=== PATIENT | male | born 1995 | race Caucasian/White ===

== ENCOUNTER 2018-06-16 18:52 | Emergency (ER) | payer BC ==
[2018-06-16 19:18] VITALS: BP 112/57
--- NOTE | 2018-06-16 20:20 | UC ---
UC General HPI - HPI Summary HPI Summary: 1. PT IS C/O A RASH ON HIS STOMACH FOR ABOUT 2 WEEKS. IT IS ITCHY AND SOMETIMES FLARES UP MORE THAN OTHERS. 2. ALSO C/O PAIN IN THE BASES OF HIS RIBS AND SIDE OF ABDOMEN FOR ABOUT 3 MONTHS. HE SAW HIS PCP ON L.I. WHO REFER TO PT BUT PATIENT RELOCATED HERE RIGHT AFTER THAT. HE NEVER GOT A CXR. HE DENIES ANY INJURY BUT ADMITS TO [employer] AT THE TIME OF ONSET. NO CP, SOB, COUGH. - History of Current Complaint Chief Complaint: UCGeneralIllness Stated Complaint: SKIN CONCERN Time Seen by Provider: 06/16/18 20:13 Hx Obtained From: Patient Pain Intensity: 2 - Allergy/Home Medications Allergies/Adverse Reactions: Allergies Allergy/AdvReac Type Severity Reaction Status Date / Time No Known Allergies Allergy Verified 06/16/18 19:18 Home Medications: Home Medications Melatonin/Pyridoxine HCl (B6) [Melatonin 10 mg Tablet] 1 each PO DAILY 06/16/18 [History Confirmed 06/16/18] PMH/Surg Hx/FS Hx/Imm Hx Previously Healthy: Yes - Surgical History Surgical History: None - Family History Known Family History: Positive: Other - RA - Social History Occupation: Employed Full-time Alcohol Use: Weekly Substance Use Type: None Smoking Status (MU): Never Smoked Tobacco Type: eCigarettes - Immunization History Vaccination Up to Date: Yes Review of Systems Constitutional: Negative Skin: Rash Eyes: Negative ENT: Negative Respiratory: Negative Cardiovascular: Negative Gastrointestinal: Negative Genitourinary: Negative Motor: Negative Neurovascular: Negative Musculoskeletal: Other: - rib pain Neurological: Negative Psychological: Negative Is Patient Immunocompromised?: No All Other Systems Reviewed And Are Negative: Yes Physical Exam Triage Information Reviewed: Yes Appearance: Well-Appearing Vital Signs: Initial Vital Signs Temp 98.2 F 06/16/18 19:10 Pulse 60 06/16/18 19:10 Resp 16 06/16/18 19:10 BP 112/57 06/16/18 19:10 Pulse Ox 100 06/16/18 19:10 Vital Signs Reviewed: Yes Eyes: Positive: Conjunctiva Clear ENT: Positive: Pharynx normal, TMs normal. Negative: Nasal congestion, Nasal drainage Neck: Positive: Supple, Nontender, No Lymphadenopathy Respiratory: Positive: Lungs clear, Normal breath sounds, Other: - chest wall tender to inferior ribs with anterior-posterior compression but no crepitation or instability. Cardiovascular: Positive: RRR, No Murmur, Pulses Normal Abdomen Description: Positive: Nontender, No Organomegaly, Soft. Negative: Distended, Guarding, Hepatomegaly, Splenomegaly Bowel Sounds: Positive: Present Musculoskeletal: Positive: ROM Intact, No Edema Neurological: Positive: Alert Psychological: Positive: Age Appropriate Behavior Skin Exam: Normal Skin: Positive: rashes - faint pink semioval spots on front of trunk. Diagnostics - Radiology No standard instances Radiology Interpretation Completed By: ED Physician - cxr=nad Course/Dx - Course Course Of Treatment: cxr=no cm, infiltrate, ptx or bony pathology. will tx nsaid for chest wall pain. rash looks c/w tinea versicolor, will tx slenium sulfide shampoo. - Differential Dx - Multi-Symptom Provider Diagnoses: chest wall pain. tinea versicolor Discharge - Sign-Out/Discharge Documenting (check all that apply): Patient Departure All imaging exams completed and their final reports reviewed: No - Discharge Plan Condition: Stable Disposition: HOME Prescriptions: Naproxen [Naprosyn 500 mg tab] 500 mg PO BID 5 Days #10 tablet Patient Education Materials: Tinea Versicolor (ED), Chest Wall Pain (ED) Additional Instructions: USE SELSUN BLUE SHAMPOO WITH SELENIUM SULFIDE FOR THE RASH. SHAMPOO HAIR/BODY WITH IT DAILY - Billing Disposition and Condition Condition: STABLE Disposition: Home
--- NOTE | 2018-06-17 08:08 | RAD ---
HISTORY: pain in chest/ribs x 3 months COMPARISONS: None VIEWS: 4: Frontal dual-energy and lateral views of the chest. FINDINGS: CARDIOMEDIASTINAL SILHOUETTE: The cardiomediastinal silhouette is normal. BONIFACIO: The bonifacio are normal. PLEURA: The costophrenic angles are sharp. No pleural abnormalities are noted. LUNG PARENCHYMA: The lungs are clear. ABDOMEN: The upper abdomen is clear. There is no subphrenic gas. BONES AND SOFT TISSUES: No bone or soft tissue abnormalities are noted. OTHER: None. IMPRESSION: NO ACTIVE CARDIOPULMONARY DISEASE. R0
--- NOTE | 2018-06-17 08:23 | UC ---
- Progress Note Progress Note: Patient Name: ASHLEY ZHU Medical Record#: [id number] Ordering Physician: Yahaira DUARTE Acct.#: [id number] : 1995 Age: 22 Sex: M Location: [facility]RGENT [facility] Exam Date: 06/16/182034 ADM Status: DEP ER Order Information: CHEST PA & LAT 2 VWS Accession Number: [id number] CPT: 27852 HISTORY: pain in chest/ribs x 3 months COMPARISONS: None VIEWS: 4: Frontal dual-energy and lateral views of the chest. FINDINGS: CARDIOMEDIASTINAL SILHOUETTE: The cardiomediastinal silhouette is normal. ANAY: The anay are normal. PLEURA: The costophrenic angles are sharp. No pleural abnormalities are noted. LUNG PARENCHYMA: The lungs are clear. ABDOMEN: The upper abdomen is clear. There is no subphrenic gas. BONES AND SOFT TISSUES: No bone or soft tissue abnormalities are noted. OTHER: None. IMPRESSION: NO ACTIVE CARDIOPULMONARY DISEASE. R0 <Electronically signed by Vern Reid MD in OV> 06/17/18804 Dictated By: Vern Reid MD Dictated Date/Time: 06/17/18804 Transcribed Date/Time: 06/17/18804 Copy to: CC:Thompson Recinos MD; Yahaira DUARTE; No Primary Care Phys,NOPCP Imaging - [facility] Imaging [facility] Imaging [facility] [address] [address] ph ([phone]) ph ([phone]) ph ([phone]) This report is only to be considered final once signed by the Provider(s) as displayed in the "<Electronically Signed by >" field (s). Absence of a signature indicates the report is in a draft status and still needs to be finalized. In the event this document was created by someone other than the signing Provider, the individual initiating the document will be listed in the "Entered by:" or "Dictated by:" conley. 1 of 1 Discharge - Sign-Out/Discharge Documenting (check all that apply): Post-Discharge Follow Up All imaging exams completed and their final reports reviewed: Yes - Discharge Plan Condition: Stable Disposition: HOME Prescriptions: Naproxen [Naprosyn 500 mg tab] 500 mg PO BID 5 Days #10 tablet Patient Education Materials: Tinea Versicolor (ED), Chest Wall Pain (ED) Referrals: [facility] [Provider Group] - 7 Days Additional Instructions: USE SELSUN BLUE SHAMPOO WITH SELENIUM SULFIDE FOR THE RASH. SHAMPOO HAIR/BODY WITH IT DAILY - Billing Disposition and Condition Condition: STABLE Disposition: Home
== END 2018-06-16 21:07 | disposition home or self-care (01) ==
LOC: UCCORT 18:52
DX: B36.0 Pityriasis versicolor (principal); R07.89 Other chest pain
CPT/HCPCS: 71046; 99202; G0463

== ENCOUNTER 2018-07-14 07:40 | Emergency (ER) | payer BC ==
[2018-07-14 08:15] VITALS: BP 116/58
--- NOTE | 2018-07-14 09:35 | UC ---
Hand/Wrist HPI - HPI Summary HPI Summary: 23 yo gentleman with R 5th finger lac, sustained last evening approx 20:30, while cutting onions with a kitchen knife. Also cut L thumb. Left 5th finger looks worse today, prompting evaluation here. No pdw. No redness / fever. Able to bend. Last tet date unclear, but Francesco reports within 5 years. - History Of Current Complaint Chief Complaint: UCLaceration Stated Complaint: LAC LT HAND/PINKY Time Seen by Provider: 07/14/18 08:50 Hx Obtained From: Patient Pain Intensity: 6 - Allergies/Home Medications Allergies/Adverse Reactions: Allergies Allergy/AdvReac Type Severity Reaction Status Date / Time No Known Allergies Allergy Verified 07/14/18 08:13 Home Medications: Home Medications Omeprazole CAP* [Prilosec CAP* 20 MG] 20 mg PO DAILY 07/14/18 [History Confirmed 07/14/18] PMH/Surg Hx/FS Hx/Imm Hx Previously Healthy: Yes - Surgical History Surgical History: None - Family History Known Family History: Positive: Other - RA - Social History Alcohol Use: Weekly Substance Use Type: None Smoking Status (MU): Never Smoked Tobacco Type: eCigarettes - Immunization History Most Recent Tetanus Shot: within 5 years Vaccination Up to Date: Yes Review of Systems All Other Systems Reviewed And Are Negative: Yes Constitutional: Positive: Negative Skin: Positive: Other - see hpi Eyes: Positive: Negative ENT: Positive: Negative Respiratory: Positive: Negative Cardiovascular: Positive: Negative Gastrointestinal: Positive: Negative Genitourinary: Positive: Negative Motor: Positive: Other - see hpi Neurovascular: Positive: Other - see hpi Musculoskeletal: Positive: Other: - see hpi Neurological: Positive: Negative Psychological: Positive: Negative Is Patient Immunocompromised?: No Physical Exam Triage Information Reviewed: Yes Appearance: Well-Appearing, Well-Nourished Vital Signs: Initial Vital Signs Temp 98 F 07/14/18 08:11 Pulse 81 07/14/18 08:11 Resp 16 07/14/18 08:11 BP 116/58 07/14/18 08:11 Pulse Ox 98 07/14/18 08:11 Vital Signs Reviewed: Yes Eye Exam: Normal ENT Exam: Normal Neck exam: Normal Respiratory Exam: Normal Cardiovascular Exam: Normal Abdominal Exam: Normal Musculoskeletal Exam: Other - see skin Neurological Exam: Normal Psychological Exam: Normal Skin Exam: Other - Pt is R Handed. L 5th finger +full thickness wound approx 1cm x 2mm L / w Depth approx 1mm. Irrigated by RN. + local swelling, nonfluctuant, no cellulitis. Distal sens LT present. CR < 2 sec. Able to bend and straighten. L thumb superficial lac, mild. 1 cm irreg. Both lacs irrigated by RN. Thumb with bandaid per rn. L finger lac 5th digit. Unable to suture d/t length of time from injury and appearance of wound. No tendon involvement appreciated. However, repair with skin adhesive performed. Reinforced with steristrip. Reviewed WC instructions. Hand/Wrist Course/Dx - Course Course Of Treatment: see exam. Questions as posed answered to the best of my ability. Declines work note - Differential Dx/Diagnosis Provider Diagnosis: Finger laceration Discharge - Sign-Out/Discharge Documenting (check all that apply): Patient Departure All imaging exams completed and their final reports reviewed: No Studies - Discharge Plan Condition: Stable Disposition: HOME Prescriptions: Cephalexin CAP* [Keflex 500 CAP*] 500 mg PO TID #15 cap Patient Education Materials: Finger Laceration (ED), Skin Adhesive Care (ED) Referrals: No Primary Care Phys,NOPCP [Primary Care Provider] - Additional Instructions: Follow up here or with primary care physician in 2 days for recheck. Seek medical attention for worse or new problems. Avoid getting wound wet for 5 days. Dressing care once daily, dry bandage. After glue comes off, then ok to wash, thin layer bacitracin / bandaid once daily. Avoid neosporin. Avoid astringents. Antibiotic start today. Eat yogurt days that you take antibiotic. Splint during the day as needed for comfort and to avoid excess movement. - Billing Disposition and Condition Condition: STABLE Disposition: Home
== END 2018-07-14 09:54 | disposition home or self-care (01) ==
LOC: UCCORT 07:40
DX: W26.0XXA Contact with knife, initial encounter (principal); Y93.G1 Activity, food preparation and clean up; Y92.9 Unspecified place or not applicable; S61.214A Laceration without foreign body of right ring finger without damage to nail, initial encounter; F17.290 Nicotine dependence, other tobacco product, uncomplicated
CPT/HCPCS: 99212; G0463

== ENCOUNTER 2018-09-10 17:03 | Emergency (ER) | payer BC, OTHER ==
--- NOTE | 2018-09-10 18:54 | UC ---
Abdominal Pain Male HPI - HPI Summary HPI Summary: 23 yo WM presents with right mid abd pain after eating today. Pt has had intermittent stabbing pain in the past on the LEFT side but now it is more on the RIGHT. Pt has had 2 previous consults with GI in late july - has had EGD and colonoscopy that was neg but still awaiting results from full GI workup. States he also has been constipated x1 week, does have BM but has to strain a bit more. Denies diarrhea or bloody stools - History of Current Complaint Chief Complaint: UCAbdominalPain Stated Complaint: TORSO PAIN Time Seen by Provider: 09/10/18 17:53 Hx Obtained From: Patient Onset/Duration: Sudden Onset, Lasting Hours Severity Initially: Moderate Severity Currently: Moderate Pain Intensity: 3 - Allergies/Home Medications Allergies/Adverse Reactions: Allergies Allergy/AdvReac Type Severity Reaction Status Date / Time No Known Allergies Allergy Verified 09/10/18 17:30 Home Medications: Home Medications NK [No Home Medications Reported] 09/10/18 [History Confirmed 09/10/18] PMH/Surg Hx/FS Hx/Imm Hx - Surgical History Surgical History: None - Family History Known Family History: Positive: Other - RA - Social History Alcohol Use: Occasionally Substance Use Type: Marijuana Substance Use Comment - Amount & Last Used: occ usage Smoking Status (MU): Never Smoked Tobacco Type: eCigarettes Amount Used/How Often: every 2 weeks - Immunization History Most Recent Tetanus Shot: within 5 years Vaccination Up to Date: Yes Review of Systems All Other Systems Reviewed And Are Negative: Yes Constitutional: Positive: Negative Skin: Positive: Negative Eyes: Positive: Negative ENT: Positive: Negative Respiratory: Positive: Negative Cardiovascular: Positive: Negative Gastrointestinal: Positive: Abdominal Pain. Negative: Vomiting, Diarrhea, Nausea Genitourinary: Positive: Negative Motor: Positive: Negative Neurovascular: Positive: Negative Musculoskeletal: Positive: Negative Neurological: Positive: Negative Psychological: Positive: Negative Physical Exam - Summary Physical Exam Summary: Eye Exam: Normal ENT Exam: Normal ENT: Positive: Normal ENT inspection, Pharynx normal Dental Exam: Normal Neck exam: Normal Cardiovascular: Positive: RRR Abdominal Exam: Normal Abdomen Description: Positive: percussion- dense, diffuse mild tenderness, no guarding or rebound Musculoskeletal Exam: Normal Neurological Exam: Normal Psychological Exam: Normal Skin Exam: Normal Vital Signs: Initial Vital Signs Temp 36.8 C 09/10/18 17:18 Pulse 60 09/10/18 17:18 Resp 14 09/10/18 17:18 BP 111/67 09/10/18 17:18 Pulse Ox 100 09/10/18 17:18 Abd Pain Male Course/Dx - Course Course Of Treatment: CT abd w/o contrast- colon full of stool, otherwise NEGATIVE - Differential Dx/Clinical Impression Provider Diagnosis: Abdominal pain, Constipation Discharge - Sign-Out/Discharge Documenting (check all that apply): Patient Departure All imaging exams completed and their final reports reviewed: Yes - Discharge Plan Condition: Stable Disposition: HOME Patient Education Materials: Abdominal Pain (ED) Referrals: No Primary Care Phys,NOPCP [Primary Care Provider] - Additional Instructions: High fiber diet, copious hydration , limit alcohol intake and follow up with senior pharmacy technician - Billing Disposition and Condition Condition: STABLE Disposition: Home
[2018-09-10 19:00] VITALS: BP 109/72
== END 2018-09-10 20:39 | disposition home or self-care (01) ==
LOC: UCCORT 17:03
DX: R10.84 Generalized abdominal pain (principal); K59.00 Constipation, unspecified; F17.290 Nicotine dependence, other tobacco product, uncomplicated
CPT/HCPCS: 74176; 99212; G0463